=== PATIENT | male | born 1975 | race Caucasian/White ===

== ENCOUNTER 2022-03-11 14:30 | Emergency (ER) | payer SELFPAY ==
[~2022-03-11] VITALS: Ht 188 cm; Wt 90.7 kg
--- NOTE | 2022-03-11 14:58 | ED EENT ---
History of Present Illness General Stated Complaint: DENTAL PAIN Source: patient Exam Limitations: no limitations History of Present Illness Date Seen by Provider: Mar 11, 2022 Time Seen by Provider: 14:54 Initial Comments Patient is a 46-year-old male who presents to the ED lower dental pain. Patient states he ate popcorn kernels last night and his 2 lower central incisors became loose. Reports pain without any provement Tyle ibuprofen. Attempted to call multiple dentist was not able to see him. Patient is requesting his teeth to be pulled at this time. Denies fever, chills, nausea, vomit, diarrhea Allergies and Home Medications Allergies Coded Allergies: No Known Drug Allergies (Unverified , 03/11/22) Patient Home Medication List Home Medication List Reviewed: Yes Hydrocodone/Acetaminophen (Hydrocodone-Acetamin 5-325 mg) 5 Mg-325 Mg Tablet, 1 TAB PO Q4H PRN for PAIN-MODERATE (5-7) Prescribed by: EULALIA WEBER on 03/11/22 1502 Penicillin V Potassium (Penicillin V Potassium) 500 Mg Tablet, 500 MG PO QID Prescribed by: EULALIA WEBER on 03/11/22 1502 Review of Systems Review of Systems Constitutional: No chills, No diaphoresis, No malaise, No weakness Eyes: Denies Blurred Vision, Denies Drainage, Denies Decreased Acuity Ears: Denies Dizziness, Denies Pain Nose: denies clots, denies congestion Mouth: loose teeth; denies pain, denies swelling Throat: denies pain, denies swelling Respiratory: No cough, No dyspnea on exertion Cardiovascular: No chest pain Gastrointestinal: No abdominal pain, No constipation, No diarrhea, No nausea, No vomiting Musculoskeletal: No back pain, No joint pain Skin: No change in color, No change in hair/nails All Other Systems Reviewed Negative Unless Noted: Yes Physical Exam Vital Signs Vital Signs - First Documented 03/11/22 14:47 Temp 36.3 Pulse 61 Resp 19 B/P (MAP) 139/75 (96) O2 Delivery Room Air Height, Weight, BMI Height: '" Weight: lbs. oz. kg; BMI Method: General Appearance: WD/WN, no apparent distress Eyes: bilateral eye normal inspection, bilateral eye PERRL, bilateral eye EOMI Ears: bilateral ear auricle normal, bilateral ear canal normal, bilateral ear TM normal Nose: normal inspection, active bleeding Mouth/Throat: other (Central incisor or loosening lower teeth. Severe decay noted throughout. No active bleeding.) Neck: non-tender, full range of motion, supple, normal inspection Cardiovascular: regular rate, rhythm, no edema, no gallop, no JVD Respiratory: chest non-tender, lungs clear, normal breath sounds, no respiratory distress Gastrointestinal: normal bowel sounds, non tender, soft Neurologic/Psychiatric: desizing machine back tender II-XII nml as tested, no motor/sensory deficits, alert, normal mood/affect, oriented x 3 Skin: normal color, warm/dry Progress/Results/Core Measures Results/Orders Vital Signs/I&O 03/11/22 14:47 Temp 36.3 Pulse 61 Resp 19 B/P (MAP) 139/75 (96) O2 Delivery Room Air Departure Communication (PCP) Attempted to contact pediatric dental emergency to see if one of the residents would be able to pull the teeth. They cannot pull teeth under the age of 18. He took patient's information and will have [facility] call him for a appointment on monday. Will discharge with pain medication and penicillin VK. Discussed soft foods. Patient refused dental block. Patient does not appear toxic or septic. Return precaution were discussed with patient. Impression Primary Impression: Pain, dental Disposition: HOME, SELF-CARE Condition: Stable Departure-Patient Inst. Decision time for Depature: 14:55 Referrals: NO,LOCAL PHYSICIAN (PCP/Family) Primary Care Physician Patient Instructions: Dental Pain Add. Discharge Instructions: Should be recalled receiving a call from [facility] dental Scripts Penicillin V Potassium (Penicillin V Potassium) 500 Mg Tablet 500 MG PO QID for 7 Days, #28 TAB Prov: AMANDA FLORES 03/11/22 Hydrocodone/Acetaminophen (Hydrocodone-Acetamin 5-325 mg) 5 Mg-325 Mg Tablet 1 TAB PO Q4H PRN for PAIN-MODERATE (5-7), #10 TAB Prov: AMANDA FLORES 03/11/22 AMANDA FLORES Mar 11, 2022 14:58
[2022-03-11] MEDS ORDERED: ACHD5005 PO (15:02)
[2022-03-11] MEDS ORDERED: PENI500T PO (15:02)
[2022-03-11 15:07] VITALS: BP 144/85
== END 2022-03-11 15:07 | disposition home or self-care (01) ==
LOC: ER 14:32
DX: K02.9 Dental caries, unspecified (principal); Z28.310 Unvaccinated for COVID-19
CPT/HCPCS: 99281; 99283

== ENCOUNTER 2023-06-02 15:39 | Emergency (ER) | payer SELFPAY ==
[~2023-06-02 15:39] MED LIST: ACHD5005 PO; PENI500T PO
[2023-06-02 15:44] VITALS: BP 131/93
--- NOTE | 2023-06-02 15:51 | ED Upper Extremity ---
General Chief Complaint: Laceration Stated Complaint: LT INDEX FINGER LAC Source: patient Exam Limitations: no limitations History of Present Illness Date Seen by Provider: Jun 02, 2023 Time Seen by Provider: 15:48 Initial Comments Patient is a 48-year-old male who presents to the ED with lacerations to his left index finger. States 20 minutes ago patient was using a electrical hedge clipper. This slipped resulting in two lacerations along the lateral side of his left index finger. He is able to move his finger. He states he noticed a large amount of blood. Bleeding controlled direct pressure. Up-to-date on his tetanus within the past 5 years. Normal range of motion. Denies any distal numbness and tingling. Patient denies blood thinner use. Allergies and Home Medications Allergies Coded Allergies: No Known Drug Allergies (Unverified , 03/11/22) Patient Home Medication List Home Medication List Reviewed: Yes Hydrocodone/Acetaminophen (Hydrocodone-Acetamin 5-325 mg) 5 Mg-325 Mg Tablet, 1 TAB PO Q4H PRN for PAIN-MODERATE (5-7) Prescribed by: EULALIA WEBER on 03/11/22 1502 Penicillin V Potassium (Penicillin V Potassium) 500 Mg Tablet, 500 MG PO QID Prescribed by: EULALIA WEBER on 03/11/22 1502 Review of Systems Constitutional: No chills, No diaphoresis EENTM: No hearing loss, No ear pain, No blurred vision Respiratory: No cough, No dyspnea on exertion Cardiovascular: No chest pain Gastrointestinal: No abdominal pain, No diarrhea, No nausea, No vomiting Genitourinary: No decreased output, No discharge, No dysuria, No frequency Musculoskeletal: No back pain, No joint pain; muscle pain Skin: change in color All Other Systems Reviewed Negative Unless Noted: Yes Physical Exam Vital Signs Vital Signs - First Documented 06/02/23 15:44 Temp 36.2 Pulse 125 Resp 16 B/P (MAP) 131/93 (106) O2 Delivery Room Air Capillary Refill : Height, Weight, BMI Height: '" Weight: lbs. oz. kg; 25.00 BMI Method: General Appearance: WD/WN, no apparent distress HEENT: PERRL/EOMI, normal ENT inspection, TMs normal, pharynx normal Neck: non-tender, full range of motion, supple Cardiovascular: regular rate, rhythm, no edema, no gallop, no JVD Respiratory: chest non-tender, lungs clear, normal breath sounds, no respiratory distress Gastrointestinal: normal bowel sounds, non tender, soft Back: normal inspection, no CVA tenderness Shoulder: normal inspection, non-tender Elbow/Forearm: normal inspection, non-tender, no evidence of injury Wrist: Yes normal inspection, Yes non-tender, Yes no evidence of injury Hand: laceration (2 1 cm laceration to the left lateral index finger. Mild bleeding. Normal active range of motion of the left index finger. 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 Small amount of adipose involvement. No tendon neurovascular involvement.) Procedures/Interventions Wound Location: Upper Extremities Other Wound Location left index finger Wound Length (cm): 2 Wound's Depth, Shape: superficial, sub Q Wound Explored: clean Irrigated w/ Saline (ccs): 200 Betadine Prep?: Yes Anesthesia: 1% Lidocaine Volume Anesthetic (ccs): 3 Wound Debrided: minimal Suture: Ethlion Suture Size: 5-0 Number of Sutures: 4 Layer Closure?: 1 Sterile Dressing Applied?: Yes Progress/Results/Core Measures Results/Orders My Orders Orders - AMANDA FLORES Lidocaine 1% Inj 10 Ml (Xylocaine 1% Inj (06/02/23 16:00) Lidocaine 1% Inj 20 Ml (Xylocaine 1% Inj (06/02/23 15:53) Medications Given in ED Current Medications Medications Dose Ordered Sig/Britta Route Start Time Stop Time Status Last Admin Dose Admin Lidocaine HCl 20 ml STK-MED ONCE .ROUTE 06/02/23 15:53 06/02/23 15:55 DC 06/02/23 16:00 20 ML Vital Signs/I&O 06/02/23 15:44 Temp 36.2 Pulse 125 Resp 16 B/P (MAP) 131/93 (106) O2 Delivery Room Air Departure Communication (PCP) Patient has two 1 cm laceration of the left index finger on the lateral side of the finger. No tendon or muscular involvement. Neurovascular intact. Normal range of motion at the DIP, PIP and MCP joint. Two 5-0 Ethilon sutures were placed to each laceration. Extensive irrigation with normal saline and Shur cleans. Procedure document note. Remove in 10 days. Topical Neosporin twice a day. Wound appears clean. He is up-to-date on his tetanus. Will discharge with finger splint. If increased redness or swelling to return back to ED. Impression Primary Impression: Finger laceration Disposition: HOME, SELF-CARE Condition: Stable Departure-Patient Inst. Decision time for Depature: 15:50 Referrals: [facility] [place] PHYSICIAN (PCP) Primary Care Physician Patient Instructions: Laceration Repair With Stitches ED Add. Discharge Instructions: Remove stitches in 10 days. Topical Neosporin twice a day. If increased redness or swelling to return back to ED All discharge instructions reviewed with patient and/or family. Voiced understanding. AMANDA FLORES Jun 02, 2023 15:51
[2023-06-02] MEDS ORDERED: LIDOCAINE 1% INJ 20 ML VIAL ONE (15:53)
[2023-06-02] MEDS ORDERED: LIDOCAINE 1% INJ 10 ML VIAL INJ ONE (16:00)
== END 2023-06-02 16:12 | disposition home or self-care (01) ==
LOC: EDUNIT# 15:39 → ER 15:41
DX: S61.211A Laceration without foreign body of left index finger without damage to nail, initial encounter (principal); W29.3XXA Contact with powered garden and outdoor hand tools and machinery, initial encounter
CPT/HCPCS: 12001